=== PATIENT | female | born 2000 | race African-American/Black ===

== ENCOUNTER 2023-08-20 06:25 | Inpatient (IN) ==
[2023-08-20] MEDS ORDERED: BETADINE SOLN ONE (06:32)
[2023-08-20] MEDS ORDERED: D5 1/2 NS 1,000 ML 1,000 ML IV ONE (06:32)
[2023-08-20] MEDS ORDERED: PITOCIN ONE (06:32)
[2023-08-20] MEDS ORDERED: D5 LR + PITOCIN 10 UNITS/L 10 UNITS/1,000 ML BAG IV ONE (06:33)
[2023-08-20] MEDS ORDERED: D5 1/2 NS 1,000 mL + PITOCIN 20 UNITS/L IV 20 UNITS/1,000 ML BAG IV ONE (06:33)
[2023-08-20] MEDS ORDERED: PITOCIN IVP ONE (06:40)
[2023-08-20] MEDS ORDERED: D5 LR + PITOCIN 10 UNITS/L 10 UNITS/1,000 ML BAG IV PRN (06:40)
[2023-08-20] MEDS ORDERED: D5 1/2 NS 1,000 ML 1,000 ML IV SCH (06:40)
[2023-08-20] MEDS ORDERED: STADOL INJ IVP PRN (06:40)
[2023-08-20] MEDS ORDERED: NUBAIN INJ 20 MG AMP IVP PRN (06:40)
[2023-08-20] MEDS ORDERED: REGLAN INJ 10 MG VIAL IVP PRN (06:40)
[2023-08-20] MEDS ORDERED: ZOFRAN INJ 4 MG VIAL IVP PRN (06:40)
[2023-08-20] MEDS ORDERED: LR 1,000 ML IV 1,000 ML IV ONE (07:03)
[2023-08-20 07:09] LABS: BASOPHILS # (AUTO) 0.1 X10^3/uL (0.0-0.1); BASOPHILS % (AUTO) 0.6 % (0.2-1.0); EOSINOPHILS % (AUTO) 0.3 % (0.9-2.9); HEMATOCRIT 28.7 % (36.0-47.0); HEMOGLOBIN 9.2 g/dL (12.0-16.0); LYMPHOCYTES # (AUTO) 1.6 X10^3/uL (1.3-2.9); LYMPHOCYTES % (AUTO) 14.2 % (21.0-51.0); MEAN CORPUSCULAR HEMOGLOBIN 24.9 pg (27.0-34.0); MEAN CORPUSCULAR HGB CONC 32.1 g/dL (33.0-35.0); MEAN CORPUSCULAR VOLUME 77.5 fL (80.0-100.0); MEAN PLATELET VOLUME 8.4 fL (7.4-11.0); MONOCYTES # (AUTO) 0.6 x10^3/uL (0.3-0.8); MONOCYTES % (AUTO) 4.9 % (0.0-13.0); NEUTROPHILS # (AUTO) 9.3 x10^3/uL (2.2-4.8); PLATELET COUNT 274 X10^3/uL (150.0-450.0); RED CELL DISTRIBUTION WIDTH 16.2 % (11.6-16.5); WHITE BLOOD COUNT 11.6 X10^3/uL (3.6-10.0)
[2023-08-20 07:15] LABS: BLOOD UREA NITROGEN 7 mg/dL (7-18); CALCIUM 8.5 mg/dL (8.5-10.1); CARBON DIOXIDE 24.3 mmol/L (21-32); CHLORIDE 99 mmol/L (98-107); CREATININE 0.76 mg/dL (0.55-1.02); GLUCOSE 90 mg/dL (65-99); POTASSIUM 3.3 mmol/L (3.5-5.1); SODIUM 133 mmol/L (136-145); eGFR NON BLACK RACES > 60 (>60)
[2023-08-20] MEDS ORDERED: FENTANYL VIAL INJ 100 mcg ONE ×2 (07:18→07:20)
[2023-08-20] MEDS ORDERED: NAROPIN EPIDURAL 0.2% 100 ML ONE (07:18)
--- NOTE | 2023-08-20 07:22 | DR.OB ---
OB Quick Note - Assessment/Plan Assessment/Plan: L&D 08/20/23 at 7:00am S-No complaint. Does report CTX starting yesterday that were irregular. O-Afebrile,VSS VXH=920 with good LTV, +accel, no decel. CTX=irregular, mild CVX=4cm/75%/0/VTX AROM with clear fluid. IUPC and FSE placed. A-IUP at 39 2/7 weeks for induction P-Begin pitocin induction Anticipate
[2023-08-20 07:55] LABS: BILIRUBIN,URINE NEGATIVE (NEGATIVE); BLOOD/HEMOGLOBIN,URINE NEGATIVE (NEGATIVE); GLUCOSE, URINE NEGATIVE (NEGATIVE); KETONES,URINE NEGATIVE (NEGATIVE); LEUKOCYTE ESTERASE ,URINE NEGATIVE (NEGATIVE); NITRITES,URINE NEGATIVE (NEGATIVE); PH,URINE 6.5 (5.0 - 8.0); PROTEIN,URINE 1+ (NEGATIVE); UROBILINOGEN,URINE 1+ (NORMAL)
[2023-08-20 08:03] LABS: APPEARANCE,URINE SLIGHTLY HAZY (CLEAR); BACTERIA,URINE TRACE /HPF (NEGATIVE); COLOR,URINE YELLOW (YELLOW); RBC,URINE 0-2 /HPF (0-3); SQUAMOUS EPITHELIAL CELL,UR MANY /HPF (NEGATIVE)
--- NOTE | 2023-08-20 11:55 | DR.OB ---
OB Quick Note - Assessment/Plan Assessment/Plan: Delivery Note DESK EDITOR 08/20/23 at 11:40am Patient complete and pushing. Head delivered over intact perineum. No nuchal cord. Nose and mouth bulb suctioned. Body delivered over intact perineum. Cord clamped x 2 and cut. Infant handed to attendant. Cord sent for gases. Placenta delivered spontaneously / intact / 3 vessel cord. No CVX / vaginal / perineal tears. Viable male infant delivered by , VTX/OA, wt=7'7" and 8/9, stable to NBN. Mother stable to RR. [id number].
[2023-08-20] MEDS ORDERED: AMBIEN PO PRN (13:01)
[2023-08-20] MEDS ORDERED: MILK OF MAGNESIA PO PRN (13:01)
[2023-08-20] MEDS ORDERED: DERMOPLAST PAIN RELIEF SPRAY TOP PRN (13:01)
[2023-08-20] MEDS ORDERED: ADACEL or BOOSTRIX TDaP VACCINE IM ONE (13:01)
[2023-08-20] MEDS: MOTRIN TAB 800 MG PO PRN (15:36)
[2023-08-20] MEDS: D5 1/2 NS 1,000 ML 1,000 ML with PITOCIN 20 UNITS IV SCH ×2 (17:35)
[2023-08-21] MEDS: MOTRIN TAB 800 MG PO PRN (00:11)
[2023-08-21] MEDS: D5 1/2 NS 1,000 ML 1,000 ML with PITOCIN 20 UNITS IV SCH ×4 (04:11→12:04)
[2023-08-21 05:00] LABS: HEMATOCRIT 24.5 % (36.0-47.0); HEMOGLOBIN 7.8 g/dL (12.0-16.0)
[2023-08-21] MEDS ORDERED: DEPO-PROVERA CONTRACEPTIVE INJ IM ONE ×2 (06:14→09:00)
[2023-08-21 06:23] VITALS: O2SAT 100
[2023-08-21] MEDS ORDERED: ADACEL or BOOSTRIX TDaP VACCINE IM ONE (08:00)
[2023-08-21] MEDS ORDERED: PRENATAL PLUS PO SCH (09:00)
[2023-08-21 13:06] VITALS: BP 106/62; PULSE 77; RESP 18; TEMP 98.2
== END 2023-08-21 15:15 | disposition home or self-care (01) | DRG 807 ==
LOC: LD 06:25 → MED/SURG 15:28
PROVIDERS: ADMIT Specialist; ATTEND Specialist
DX: Z3A.39 39 weeks gestation of pregnancy; O99.013 Anemia complicating pregnancy, third trimester; D50.8 Other iron deficiency anemias; Z37.0 Single live birth